=== PATIENT | female | born 1980 | race Caucasian/White ===

== ENCOUNTER → 2023-10-27 | Outpatient (CLI) | payer OTHER ==
--- NOTE | 2023-10-27 14:21 | NM ---
EXAMINATION TYPE: NM bone scan whole body DATE OF EXAM: 10/27/2023 COMPARISON: NONE CLINICAL INDICATION: Female, 43 years old with history of M54.51 Vertebrogenic low back pain; Delayed whole-body scanning was performed following the injection of 24.4 mCi Tc 99m MDP. Images acq uired 5.5 hours post injection. FINDINGS: Degenerative type uptake cervical spine, mid thoracic spine and lower lumbar spine. Degenerative upta ke of the shoulders, sternoclavicular joints, bilateral knees and bilateral ankles and feet. No inten se uptake to suggest fracture or static lesion. IMPRESSION: Degenerative uptake as noted above.
== END | disposition home or self-care (01) ==
LOC: RADNMMAIN 07:21
PROVIDERS: ATTEND Physical Medicine & Rehabilitation
DX: M47.816 Spondylosis without myelopathy or radiculopathy, lumbar region (principal); M47.812 Spondylosis without myelopathy or radiculopathy, cervical region; M19.019 Primary osteoarthritis, unspecified shoulder; M17.0 Bilateral primary osteoarthritis of knee; M16.0 Bilateral primary osteoarthritis of hip
CPT/HCPCS: 78306; A9503

== ENCOUNTER 2023-12-24 19:25 | Emergency (ER) | payer OTHER ==
--- NOTE | 2023-12-24 21:03 | ED ---
General Adult HPI - General Source: patient, RN notes reviewed Mode of arrival: ambulatory Limitations: no limitations <Eleni Garcia - Last Filed: 12/24/23 21:01> <Harmeet Frias - Last Filed: 12/24/23 21:56> - General Chief complaint: Allergic Reaction Stated complaint: Reaction to meds, muscle spasms Time Seen by Provider: 12/24/23 21:01 - History of Present Illness Initial comments: Quick note: 43-year-old female presents to the emergency department for evaluation of muscle pain and spasms. Patient states that this has been going on for around the past week. She notes that she recently started Celebrex about 1 month ago. She notes that once the dose was increased, she started having muscle tightness and spasms. She notes that she has tightness to the right side of her neck and in her low back. Patient states that she went to her PCP and was given Toradol with no relief. She also states that she has taken 3 muscle relaxers recently again with no relief. (Eleni Garcia) Dictation was produced using [email or web address] dictation software. please excuse any grammatical, word or spelling errors. Chief Complaint: 43-year-old female presents to the ER for acute on chronic neck and back pain History of Present Illness: Patient 43-year-old female she was encouraged to come to the emergency department by her friend. Patient dealing with acute on chronic neck and back pain. She follows up with outpatient physicians. Patient is not happy with the current treatment. She has a TENS unit she has tried several medications to try and improve her symptoms with no relief. She is also undergoing physical therapy. The ROS documented in this emergency department record has been reviewed and confirmed by me. Those systems with pertinent positive or negative responses have been documented in the HPI. All other systems are other negative and/or noncontributory. (Harmeet Frias) - Related Data Allergies Allergy/AdvReac Type Severity Reaction Status Date / Time spironolactone AdvReac Unknown Verified 12/24/23 19:49 Review of Systems ROS Other: All systems not noted in ROS Statement are negative. <Eleni Garcia - Last Filed: 12/24/23 21:01> ROS Other: All systems not noted in ROS Statement are negative. <Harmeet Frias - Last Filed: 12/24/23 21:56> ROS Statement: Those systems with pertinent positive or pertinent negative responses have been documented in the HPI. Past Medical History Past Medical History: Asthma, Sleep Apnea/CPAP/BIPAP History of Any Multi-Drug Resistant Organisms: None Reported Past Surgical History: No Surgical Hx Reported Past Psychological History: No Psychological Hx Reported Smoking Status: Current every day smoker Past Alcohol Use History: Occasional Past Drug Use History: Marijuana <Eleni Garcia - Last Filed: 12/24/23 21:01> General Exam Limitations: no limitations <Eleni Garcia - Last Filed: 12/24/23 21:01> <Harmeet Frias - Last Filed: 12/24/23 21:56> - General Exam Comments Initial Comments: Visual Physical Exam Vital signs reviewed General: Well-appearing, nontoxic, no acute distress. Head: Normocephalic, atraumatic Eyes: PERRLA, EOMI ENT: Airway patent Chest: Nonlabored breathing Skin: No visual rash, normal skin tone Neuro: Alert and oriented 3 Musculoskeletal: No gross abnormalities (Eleni Garcia) General: Well-appearing, nontoxic, no acute distress. Head: Normocephalic, atraumatic Eyes: PERRLA, EOMI ENT: Airway patent Chest: Nonlabored breathing Skin: No visual rash, normal skin tone Neuro: Alert and oriented 3 Musculoskeletal: Exquisite palpatory tenderness to the right trapezius and para- scapular soft tissues along with soft tissue to the lower back (Harmeet Frias) Course Vital Signs 12/24/23 19:45 Temperature 98.2 F Pulse Rate 99 Respiratory 18 Rate Blood Pressure 131/87 O2 Sat by Pulse 98 Oximetry Medical Decision Making <Eleni Garcia - Last Filed: 12/24/23 21:01> <Harmeet Frias - Last Filed: 12/24/23 21:56> - Medical Decision Making Quick note performed and electronically signed by Eleni Garcia PA-C (Eleni Garcia) Was pt. sent in by a medical professional or institution (JAIRO Bauman, DIRECTOR OF [employer]AURANT [employer]PERATIONS, urgent care, hospital, or jail...) When possible be specific @ -No Did you speak to anyone other than the patient for history (EMS, parent, family, police, friend...)? What history was obtained from this source @ -No Did you review nursing and triage notes (agree or disagree)? Why? @ -I reviewed and agree with nursing and triage notes Were old charts reviewed (outside hosp., previous admission, EMS record, old EKG, old radiological studies, urgent care reports/EKG's, jail records)? Report findings @ -No old charts were reviewed Differential Diagnosis (chest pain, altered mental status, abdominal pain women, abdominal pain men, vaginal bleeding, musculoskeletal, weakness, fever, dyspnea, syncope, headache, dizziness, GI bleed, back pain, seizure, CVA, palpatations, mental health)? @ -Differential Back Pain: Strain, zoster, cauda equina syndrome, epidural abscess, vertebral osteomyelitis, discitis, fracture, subluxation, disc herniation, DJD, spinal stenosis, dissection, AAA, pancreatitis, peptic ulcer disease, pyelonephritis, kidney stone, this is not meant to be an all-inclusive list. EKG interpreted by me (3pts min.). @ -None done X-rays interpreted by me (1pt min.). @ -None done CT interpreted by me (1pt min.). @ -None done U/S interpreted by me (1pt. min.). @ -None done What testing was considered but not performed or refused? (CT, X-rays, U/S, labs)? Why? @ -None What meds were considered but not given or refused? Why? @ -None Did you discuss the management of the patient with other professionals (professionals i.e. , PA, DIRECTOR OF [employer]PERATIONS, lab, RT, psych nurse, social worker health services, ap operator, teacher, vessel traffic officer, case monitor)? Give summary @ -No Was smoking cessation discussed for >3mins.? @ -No Was critical care preformed (if so, how long)? @ -No Were there social determinants of health that impacted care today? How? (Homelessness, low income, unemployed, alcoholism, drug addiction, transportation, low edu. Level, literacy, decrease access to med. care, longterm, rehab)? @ -No Was there de-escalation of care discussed even if they declined (Discuss DNR or withdrawal of care, Hospice)? DNR status @ -No What co-morbidities impacted this encounter? (DM, HTN, Smoking, COPD, CAD, Cancer, CVA, ARF, Chemo, Hep., AIDS, mental health diagnosis, sleep apnea, morbid obesity)? @ -None Was patient admitted / discharged? Hospital course, mention meds given and route, prescriptions, significant lab abnormalities, going to OR and other pertinent info. @ -43-year-old female presents to the emergency department acute on chronic neck and back pain. She has been seeing pain doctor, Dr. Turner outpatient. She is undergone overwhelming amount of different treatments and modalities with no relief. Patient states that her pain has been ongoing for months. She was encouraged by a friend to come to the ER for evaluation. Patient given IM injection of Dilaudid. She is not currently happy with her current pain doctor. She is given referral to Dr. Shahid. Undiagnosed new problem with uncertain prognosis? @ -No Drug Therapy requiring intensive monitoring for toxicity (Heparin, Nitro, Insulin, Cardizem)? @ -No Were any procedures done? @ -No Diagnosis/symptom? Acute, or Chronic, or Acute on Chronic? Uncomplicated (without systemic symptoms) or Complicated (systemic symptoms)? @ -Acute on chronic neck and back pain Side effects of treatment? @ -No Exacerbation, Progression, or Severe Exacerbation? @ -No Poses a threat to life or bodily function? How? (Chest pain, USA, ID, pneumonia, PE, COPD, DKA, ARF, appy, cholecystitis, CVA, Diverticulitis, Homicidal, Suicidal, threat to staff... and all critical care pts) @ -yes (Harmeet Frias) Disposition <Eleni Garcia - Last Filed: 12/24/23 21:01> Is patient prescribed a controlled substance at d/c from ED?: No Time of Disposition: 21:56 <Harmeet Frias - Last Filed: 12/24/23 21:56> Clinical Impression: Acute exacerbation of chronic low back pain Disposition: HOME SELF-CARE Condition: Fair Instructions (If sedation given, give patient instructions): Muscle Spasm (ED) Referrals: Romelia Angel NPC [Primary Care Provider] - 1-2 days Sheldon Mcwilliams MD [STAFF PHYSICIAN] - 1-2 days
[2023-12-24] MEDS: LIDOCAINE 4% PATCH TOPICAL ONE (22:04)
[2023-12-24] MEDS: HYDROmorphone 1 MG/ML 1 ML SYRINGE IM STA (22:12)
[2023-12-24] MEDS: DEXAMETHASONE SOD PHOSPHATE 10 MG/ML 1 ML VIAL IM STA (22:32)
[2023-12-24 22:52] VITALS: BP 142/89; PULSE 93; RESP 17; TEMP 98.6
== END 2023-12-24 22:44 | disposition home or self-care (01) ==
LOC: EC 19:25
DX: G89.29 Other chronic pain (principal); M54.50 Low back pain, unspecified; F17.200 Nicotine dependence, unspecified, uncomplicated; Z88.8 Allergy status to other drugs, medicaments and biological substances
CPT/HCPCS: 99283; 96372 ×2; J1100; J1170

== ENCOUNTER → 2024-11-30 | Outpatient (CLI) | payer OTHER ==
--- NOTE | 2024-12-02 12:55 | MR ---
EXAMINATION TYPE: MR knee LT wo con DATE OF EXAM: 11/30/2024 5:46 PM COMPARISON: None. CLINICAL INDICATION: Female, 44 years old with history of M25.562 PAIN IN LEFT KNEE; [facility], Left knee p ain since 2024 due to fall when fainting TECHNIQUE: Multi planar, multi sequence imaging was performed of the knee including: Triplane proton density fat-saturated images and T1-weighted imaging. No Gadolinium was given. IV Contrast: mL (none if empty) FINDINGS: Medial meniscus: Intact Medial femorotibial cartilage: Intact Medial collateral ligament: Thickened appearance with some mild edema most superficial and deep t o the tendon series 701 image 28 Lateral meniscus: Intact Lateral femorotibial cartilage: Intact Lateral collateral ligament complex: Intact Patellofemoral alignment: Normal Patellofemoral cartilage: Intact Extensor mechanism: Intact. Joint/bursal fluid: None. Muscles/tendons: The patellar tendon, quadriceps tendon, IT band, pes anserinus tendons, semimembrano che tendon, popliteus tendon, and biceps femoris tendon are all within normal limits. Bone marrow: Normal. Anterior cruciate ligament: Intact. Posterior cruciate ligament: Intact. Soft tissues: Unremarkable. IMPRESSION: 1. Low-grade MCL tear/grade 1 with surrounding edema along the medial collateral ligament. 2. 3. No bony edema to suggest fracture. ACL/PCL/LCL and menisci appear intact. [facility], , 12/02/2024 12:53 PM
== END | disposition home or self-care (01) ==
LOC: RADMRIMAIN 17:07
PROVIDERS: ATTEND Internal Medicine
DX: M25.562 Pain in left knee (principal); R60.0 Localized edema